=== PATIENT | male | born 1990 | race Caucasian/White ===

== ENCOUNTER 2021-07-23 14:46 | Emergency (ER) | payer OTHER ==
[~2021-07-23] VITALS: Ht 165.1 cm; Wt 75.0 kg
[2021-07-23] MEDS ORDERED: OLANZAPINE 5MG TABLET ODT PO ONE (17:15)
[2021-07-23] MEDS ORDERED: DIPHENHYDRAMINE 50MG CAPSULE PO ONE (17:15)
[2021-07-23 18:07] LABS: BASOPHILS % 0.9 % (0.0-2.0); EOSINOPHILS % 0.8 % (0.0-5.0); HEMATOCRIT. 47.5 % (42.0-52.0); LYMPHOCYTES % 19.5 % (20.0-50.0); MEAN CORPUSCULAR HEMOGLOBIN 29.4 pg (28.0-32.0); MEAN CORPUSCULAR VOLUME 87.5 fL (80.0-94.0); MEAN PLATELET VOLUME 7.9 fl (7.4-10.4); MONOCYTES % 5.8 % (2.0-8.0); PLATELET 318 x1000/uL (130-400); RED BLOOD CELL COUNT 5.43 mill/uL (4.7-6.1); RED CELL DISTRIBUTION WIDTH 13.3 % (11.6-14.6)
[2021-07-23 18:18] LABS: CHLORIDE 111 mEq/L (98-107)
[2021-07-23 18:23] LABS: ETHANOL BLOOD < 10 mg/dL
[2021-07-23 18:45] LABS: *AMPHETAMINES SCREEN URINE NEGATIVE (NEGATIVE); *BARBITURATES SCREEN URINE NEGATIVE (NEGATIVE); *BENZODIAZEPINES SCREEN URINE NEGATIVE (NEGATIVE); *COCAINE SCREEN URINE NEGATIVE (NEGATIVE); METHADONE URINE SCREEN NEGATIVE (NEGATIVE); OPIATES URINE SCREEN NEGATIVE (NEGATIVE)
[2021-07-23 18:46] LABS: CANNABINOID URINE SCREEN PRESUMTIVE POSITIVE (NEGATIVE); PHENCYCLIDINE URINE SCREEN NEGATIVE (NEGATIVE)
[2021-07-24 15:21] VITALS: BP 115/56
== END 2021-07-24 15:45 | disposition home or self-care (01) ==
LOC: ER 14:56
DX: F30.2 Manic episode, severe with psychotic symptoms (principal); F12.90 Cannabis use, unspecified, uncomplicated
CPT/HCPCS: 36415; 80048; 80305; 80320; 85025; 99285; G0480

== ENCOUNTER 2021-08-04 01:34 | Emergency (ER) | payer OTHER ==
[~2021-08-04] VITALS: Ht 162.6 cm; Wt 61.0 kg
[2021-08-04] MEDS ORDERED: LORAZEPAM 0.5MG TABLET PO ONE (02:00)
[2021-08-04] MEDS ORDERED: LORA-249 MT (02:34)
[2021-08-04 03:03] LABS: EOSINOPHILS % 1.2 % (0.0-5.0); HEMATOCRIT. 46.3 % (42.0-52.0); HEMOGLOBIN. 15.9 g/dL (14.0-18.0); MEAN CORPUSCULAR HEMOGLOBIN 29.5 pg (28.0-32.0); MEAN CORPUSCULAR VOLUME 86.1 fL (80.0-94.0); MEAN PLATELET VOLUME 7.6 fl (7.4-10.4); MONOCYTES % 6.5 % (2.0-8.0); NEUTROPHILS % 54.3 % (40.0-76.0); PLATELET 302 x1000/uL (130-400); RED BLOOD CELL COUNT 5.37 mill/uL (4.7-6.1); RED CELL DISTRIBUTION WIDTH 13.1 % (11.6-14.6)
[2021-08-04 03:10] LABS: CHLORIDE 104 mEq/L (98-107)
[2021-08-04 03:14] LABS: ETHANOL BLOOD < 10 mg/dL
[2021-08-04 03:36] LABS: CLARITY URINE CLEAR (CLEAR); COLOR URINE YELLOW (YELLOW); KETONES URINE TRACE (NEGATIVE); LEUKOCYTE ESTERASE URINE NEGATIVE (NEGATIVE); NITRITE URINE NEGATIVE (NEGATIVE); OCCULT BLOOD URINE NEGATIVE (NEGATIVE); PH URINE 5.5 (4.5-8.0); PROTEIN URINE NEGATIVE (NEGATIVE)
[2021-08-04 03:45] LABS: *AMPHETAMINES SCREEN URINE NEGATIVE (NEGATIVE); *BARBITURATES SCREEN URINE NEGATIVE (NEGATIVE); *BENZODIAZEPINES SCREEN URINE NEGATIVE (NEGATIVE); *COCAINE SCREEN URINE NEGATIVE (NEGATIVE); METHADONE URINE SCREEN NEGATIVE (NEGATIVE); OPIATES URINE SCREEN NEGATIVE (NEGATIVE)
[2021-08-04 03:46] LABS: CANNABINOID URINE SCREEN PRESUMTIVE POSITIVE (NEGATIVE); PHENCYCLIDINE URINE SCREEN NEGATIVE (NEGATIVE)
[2021-08-04] MEDS: RISPERIDONE 1MG TABLET PO SCH (21:58)
[2021-08-04] MEDS: TRAZODONE HCL 50MG TABLET PO SCH (21:59)
[2021-08-05] MEDS: RISPERIDONE 1MG TABLET PO SCH ×2 (08:35→21:00)
[2021-08-05] MEDS: TRAZODONE HCL 50MG TABLET PO SCH (21:00)
[2021-08-06] MEDS: RISPERIDONE 1MG TABLET PO SCH (08:35)
[2021-08-06 14:50] VITALS: BP 16/56
== END 2021-08-06 15:17 | disposition home or self-care (01) ==
LOC: ER 01:34
DX: F41.9 Anxiety disorder, unspecified (principal); R42 Dizziness and giddiness; R53.1 Weakness; Z20.822 Contact with and (suspected) exposure to COVID-19; F17.290 Nicotine dependence, other tobacco product, uncomplicated; F12.10 Cannabis abuse, uncomplicated; F15.10 Other stimulant abuse, uncomplicated
CPT/HCPCS: 36415; 80053; 80305; 80320; 81003; 85025; 99285; C9803; U0003; U0005; G0480

== ENCOUNTER 2021-08-06 18:51 | Emergency (ER) | payer OTHER ==
[~2021-08-06] VITALS: Ht 170.2 cm; Wt 70.0 kg
[~2021-08-06 18:51] MED LIST: LORA-249 MT
[2021-08-06] MEDS ORDERED: OLANZAPINE 5MG TABLET ODT PO ONE (20:30)
[2021-08-06 21:48] LABS: BASOPHILS % 0.9 % (0.0-2.0); EOSINOPHILS % 0.6 % (0.0-5.0); HEMATOCRIT. 45.7 % (42.0-52.0); HEMOGLOBIN. 15.5 g/dL (14.0-18.0); LYMPHOCYTES % 22.6 % (20.0-50.0); MEAN CORPUSCULAR HEMOGLOBIN 29.3 pg (28.0-32.0); MEAN CORPUSCULAR VOLUME 86.2 fL (80.0-94.0); MEAN PLATELET VOLUME 8.2 fl (7.4-10.4); MONOCYTES % 6.7 % (2.0-8.0); NEUTROPHILS % 69.2 % (40.0-76.0); PLATELET 286 x1000/uL (130-400)
[2021-08-06 21:54] LABS: CHLORIDE 105 mEq/L (98-107)
[2021-08-06 21:58] LABS: ETHANOL BLOOD < 10 mg/dL
[2021-08-06 22:55] LABS: CLARITY URINE CLEAR (CLEAR); COLOR URINE YELLOW (YELLOW); KETONES URINE NEGATIVE (NEGATIVE); LEUKOCYTE ESTERASE URINE NEGATIVE (NEGATIVE); NITRITE URINE NEGATIVE (NEGATIVE); OCCULT BLOOD URINE NEGATIVE (NEGATIVE); PROTEIN URINE NEGATIVE (NEGATIVE); SPECIFIC GRAVITY URINE 1.006 (1.005-1.030); UROBILINOGEN URINE 0.2 E.U./dL (0.2-1.0)
[2021-08-06 23:05] LABS: *BENZODIAZEPINES SCREEN URINE NEGATIVE (NEGATIVE); *COCAINE SCREEN URINE NEGATIVE (NEGATIVE)
[2021-08-06 23:06] LABS: *AMPHETAMINES SCREEN URINE NEGATIVE (NEGATIVE); *BARBITURATES SCREEN URINE NEGATIVE (NEGATIVE); CANNABINOID URINE SCREEN NEGATIVE (NEGATIVE); METHADONE URINE SCREEN NEGATIVE (NEGATIVE); OPIATES URINE SCREEN NEGATIVE (NEGATIVE); PHENCYCLIDINE URINE SCREEN NEGATIVE (NEGATIVE)
[2021-08-06] MEDS ORDERED: LORAZEPAM 1MG TABLET PO ONE (23:15)
[2021-08-06 23:57] VITALS: BP 145/79
== END 2021-08-06 23:57 | disposition home or self-care (01) ==
LOC: ER 18:51
DX: F41.9 Anxiety disorder, unspecified (principal); F12.10 Cannabis abuse, uncomplicated; F15.10 Other stimulant abuse, uncomplicated; Z59.00 Homelessness unspecified
CPT/HCPCS: 36415; 80053; 80305; 80320; 81003; 85025; 99283; G0480